=== PATIENT | male | born 1965 | race Caucasian/White ===

== ENCOUNTER 2024-07-23 02:10 | Emergency (ER) | payer BC ==
[~2024-07-23] VITALS: Ht 190.5 cm; Wt 90.7 kg
[2024-07-23] MEDS ORDERED: KETOROLAC TROMETHAMINE 30 MG/ML SDV IV ONE (02:35)
[2024-07-23] MEDS ORDERED: MORPHINE SULFATE 4 MG/ML VIAL IV ONE (02:35)
[2024-07-23] MEDS ORDERED: ISOVUE-300 (Iopamidol) 100 ML SDV IV ONE (02:35)
[2024-07-23 02:52] VITALS: BP 136/85
[2024-07-23 02:58] LABS: BASO% 0.4 % (0-3); EOS% 4.9 % (0-8); HEMATOCRIT 37.7 % (39.0-50.0); HEMOGLOBIN 12.6 g/dl (14.0-18.0); IMMATURE GRANULOCYTES 0.4 % (0.0-5.0); LYMPH% 27.5 % (15-41); MEAN CELL VOLUME 95.9 fL CALC (80.0-100.0); MEAN CORPUSCULAR HGB 32.1 pG CALC (26.0-32.0); MEAN CORPUSCULAR HGB CONC 33.4 g/dL CAL (32.0-36.0); MONO% 7.5 % (2-13); NEUT# 4.2 thou/uL (1.82-7.42); NEUT% 59.3 % (42-76); RED BLOOD COUNT 3.93 mill/uL (4.70-6.10); RED CELL DISTRI WIDTH 12.7 % (11.5-15.5)
[2024-07-23 03:00] VITALS: BP 136/83
[2024-07-23 03:09] LABS: ALBUMIN 4.1 g/dL (3.2-5.0); BILIRUBIN, TOTAL 0.4 mg/dL (0.2-1.3); CREATININE 0.9 mg/dL (0.7-1.3); POTASSIUM 4.4 mmol/l (3.5-5.1); TOTAL PROTEIN 6.8 g/dL (6.3-8.2)
[2024-07-23 03:31] VITALS: BP 134/87
[2024-07-23 04:01] VITALS: BP 134/77
[2024-07-23 04:31] VITALS: BP 134/81
[2024-07-23 04:53] VITALS: BP 134/81
[2024-07-23] MEDS ORDERED: TRAMADOL HYDROC50 M1 PO (04:53)
[2024-07-23] MEDS ORDERED: MOTRIN800 MG PO (04:53)
== END 2024-07-23 05:00 | disposition home or self-care (01) | DRG 556 ==
LOC: ED 02:10
PROVIDERS: Emergency Medicine
DX: M25.532 Pain in left wrist (principal); Z98.890 Other specified postprocedural states
CPT/HCPCS: Q9967

== ENCOUNTER 2024-07-25 12:03 | Emergency (ER) | payer BC ==
[~2024-07-25] VITALS: Ht 190.5 cm; Wt 90.2 kg
[~2024-07-25 12:03] MED LIST: MOTRIN800 MG PO; TRAMADOL HYDROC50 M1 PO
[2024-07-25 12:15] VITALS: BP 125/75
[2024-07-25 12:30] VITALS: BP 117/73
[2024-07-25 12:45] VITALS: BP 122/79
[2024-07-25] MEDS ORDERED: DEXAMETHASONE SOD. PHOSPHATE 10 MG/ML VIAL IM ONE (12:45)
[2024-07-25] MEDS ORDERED: LORTAB 7.57.5 MG PO (12:59)
[2024-07-25] MEDS ORDERED: PREDNISONE20 MG PO (12:59)
[2024-07-25 13:00] VITALS: BP 134/89
[2024-07-25 13:15] VITALS: BP 134/89
[2024-07-25] MEDS ORDERED: BACTRIM DS1 TAB PO ×3 (13:27→14:49)
== END 2024-07-25 13:15 | disposition home or self-care (01) | DRG 556 ==
LOC: ED 12:03
DX: M25.532 Pain in left wrist (principal); Z98.890 Other specified postprocedural states; R22.42 Localized swelling, mass and lump, left lower limb